=== PATIENT | male | born 1995 | race Caucasian/White ===

== ENCOUNTER → 2017-07-21 | Outpatient (REF) | payer BC | PROVIDERS: ATTEND Nurse Practitioner Family | DX: L02.91 Cutaneous abscess, unspecified (principal); L03.818 Cellulitis of other sites | CPT/HCPCS: 87070 ==

== ENCOUNTER → 2017-08-10 | Outpatient (CLI) | payer BC ==
[2017-08-10 13:27] LABS: PLATELET COUNT, AUTOMATED 255 K/uL (150-450)
== END ==
LOC: LAB 12:47
PROVIDERS: ATTEND Family Medicine
DX: S91.309A Unspecified open wound, unspecified foot, initial encounter (principal)
CPT/HCPCS: 36415; 82040; 82247; 82310; 82374; 82435; 82565; 82947; 84075; 84132; 84155; 84295; 84450; 84460; 84520; 85025; 85651; 87040